=== PATIENT | male | born 1980 | race Caucasian/White ===

== ENCOUNTER → 2020-07-03 | Outpatient (CLI) | payer BC | LOC: RAD 09:59 | DX: R10.32 Left lower quadrant pain (principal); Z98.890 Other specified postprocedural states ==

== ENCOUNTER → 2020-10-02 | Outpatient (CLI) | payer BC | LOC: RAD 10:03 | DX: N50.812 Left testicular pain (principal); N50.82 Scrotal pain ==

== ENCOUNTER → 2020-12-31 | Outpatient (CLI) | payer BC | LOC: VAS 08:21 → RAD 08:30 → VAS 08:30 | DX: M79.661 Pain in right lower leg (principal) ==